=== PATIENT | female | born 1960 | race Caucasian/White ===

== ENCOUNTER 2017-01-26 20:32 | Inpatient (IN) | payer OTHER ==
[~2017-01-26] VITALS: Ht 162.6 cm; Wt 79.6 kg
[~2017-01-26 20:32] MED LIST: AZEL137S4 NAS; Albuterol Nebulizer INH; CARV12.52 PO; FLUT16SP2 NAS; FLUT1BLS INH; FURO40TA6 PO; GABA600T2 PO; HYDR-3144 PO; HYDR-3240 PO; IBUP200T48 PO; IBUP800T PO; LEVO75TA5 PO; LOVA20TA2 PO; METH750T87 PO; OMEP10CA4 PO; ONDA4TAB7 PO; RAMI10CA PO; RANI150T8 PO; SPIR25TA3 PO
[2017-01-26] MEDS ORDERED: DIPHENHYDRAMINE 50 MG/ML, 1ML IM ONE (22:30)
[2017-01-26] MEDS ORDERED: DIPHENHYDRAMINE 50 MG/ML, 1ML ONE (23:14)
[2017-01-26 23:25] LABS: ASPARTATE AMINO TRANSFERASE 24 U/L (15-37); BLOOD UREA NITROGEN 17 mg/dL (7-18)
[2017-01-26 23:37] LABS: IS PT STATUS REG ER OR PRE ER? YES
[2017-01-27] MEDS ORDERED: CEFTRIAXONE PMX 1GM/50ML 50 ML IV SCH (00:30)
[2017-01-27] MEDS ORDERED: ONDANSETRON 2MG/ML, 2ML ONE (00:53)
[2017-01-27] MEDS ORDERED: BISACODYL 10 MG SUPP PR PRN (01:00)
[2017-01-27] MEDS ORDERED: GABAPENTIN 300 MG CAPSULE PO SCH (01:00)
[2017-01-27] MEDS ORDERED: FUROSEMIDE 40 MG TABLET PO PRN (01:00)
[2017-01-27] MEDS ORDERED: LOVASTATIN 40 MG TABLET PO SCH (01:00)
[2017-01-27] MEDS ORDERED: ALBUTEROL NEBULIZER INH SCH (01:00)
[2017-01-27] MEDS ORDERED: FLUTICASONE/VILANTEROL 200-25MCG/INH INH PRN (01:00)
[2017-01-27] MEDS ORDERED: NITROGLYCERIN 0.4 MG BOTTLE (25 TABS) SL PRN (01:00)
[2017-01-27] MEDS ORDERED: ONDANSETRON 2MG/ML, 2ML IVPush ONE (01:00)
[2017-01-27] MEDS ORDERED: ACETAMINOPHEN 325 MG TABLET PO PRN (01:00)
[2017-01-27] MEDS ORDERED: hydrALAzine 20 MG/ML, 1ML IV PRN (01:00)
[2017-01-27] MEDS ORDERED: POLYETHYLENE GLYCOL 17 GM PACKET PO PRN (01:00)
[2017-01-27] MEDS ORDERED: MORPHINE SULFATE 4 MG/ML, 1ML IVPush PRN (01:00)
[2017-01-27] MEDS ORDERED: ONDANSETRON 2MG/ML, 2ML IVP PRN (01:00)
[2017-01-27] MEDS ORDERED: FLUTICASONE NASAL SPRAY 16GM NAS PRN (01:00)
[2017-01-27] MEDS ORDERED: CEFTRIAXONE PMX 1GM/50ML 50 ML ONE (01:02)
[2017-01-27 02:07] VITALS: BP 134/82
[2017-01-27 02:08] VITALS: BP 134/82
[2017-01-27] MEDS: HEPARIN 5,000 UNITS/ML, 1ML SQ SCH ×2 (03:02→11:00)
[2017-01-27 06:03] LABS: BLOOD UREA NITROGEN 16 mg/dL (7-18)
[2017-01-27 06:10] LABS: ASPARTATE AMINO TRANSFERASE 17 U/L (15-37)
[2017-01-27 06:11] LABS: IS PT STATUS REG ER OR PRE ER? NO
[2017-01-27] MEDS ORDERED: CEFD300C37 PO (07:15)
[2017-01-27 07:47] VITALS: BP 109/69
[2017-01-27] MEDS ORDERED: SPIRONOLACTONE 25 MG TABLET PO SCH (09:00)
[2017-01-27] MEDS ORDERED: FAMOTIDINE 20 MG TABLET PO SCH (09:00)
[2017-01-27] MEDS ORDERED: LEVOTHYROXINE 75 MCG TABLET PO SCH (09:00)
[2017-01-27] MEDS ORDERED: RAMIPRIL 2.5 MG CAPSULE PO SCH (09:00)
[2017-01-27] MEDS ORDERED: CARVEDILOL 6.25 MG TABLET PO SCH (09:00)
[2017-01-27] MEDS ORDERED: ASPIRIN 81 MG TABLET CHEW PO SCH (09:00)
[2017-01-27] MEDS ORDERED: SODIUM CHLORIDE FLUSH 10ML SYR IVF SCH (09:00)
[2017-01-27] MEDS ORDERED: SENNA/DOCUSATE TABLET PO SCH (09:00)
[2017-01-27] MEDS ORDERED: REGADENOSON 0.4 MG/5 ML SYRINGE ONE (09:45)
[2017-01-27 12:40] LABS: IS PT STATUS REG ER OR PRE ER? NO
== END 2017-01-27 15:35 | disposition home or self-care (01) | DRG 392 ==
LOC: ED 23:59 → EDIP 01-27 00:26 → 5SO 01-27 01:03 → DCLOUNGE 01-27 15:09
PROVIDERS: ADMIT Internal Medicine
PROC: 5A09357 Assistance with Respiratory Ventilation, Less than 24 Consecutive Hours, Continuous Positive Airway Pressure (ICD-10-PCS; principal; 2017-01-27)
DX: K21.9 Gastro-esophageal reflux disease without esophagitis (principal); N39.0 Urinary tract infection, site not specified; J44.9 Chronic obstructive pulmonary disease, unspecified; G47.33 Obstructive sleep apnea (adult) (pediatric); I50.9 Heart failure, unspecified; I11.0 Hypertensive heart disease with heart failure; I34.0 Nonrheumatic mitral (valve) insufficiency; I16.0 Hypertensive urgency; E03.9 Hypothyroidism, unspecified; E78.5 Hyperlipidemia, unspecified; Z82.49 Family history of ischemic heart disease and other diseases of the circulatory system; Z82.62 Family history of osteoporosis; Z82.5 Family history of asthma and other chronic lower respiratory diseases; Z91.013 Allergy to seafood; Z88.1 Allergy status to other antibiotic agents; Z91.041 Radiographic dye allergy status
CPT/HCPCS: 36415; 71020; 78452; 80053; 81001; 83880; 84484; 85025; 87040; 87086; 93005; 93017; 93306; 96372; 96374; J0696; J1644; J2405; J2785; A9502; C9898; J1200

== ENCOUNTER 2019-01-30 10:09 | Inpatient (IN) | payer OTHER ==
[~2019-01-30] VITALS: Ht 162.6 cm; Wt 76.2 kg
[~2019-01-30 10:09] MED LIST changes: +CEFD300C37 PO; -GABA600T2 PO; +GABA600T7 PO; -HYDR-3144 PO; +HYDR-3245 PO; +IBUP-1223 PO; -IBUP200T48 PO; +IBUP200T49 PO; -IBUP800T PO; -RAMI10CA PO; +RAMI10CA59 PO; +RANI150T23 PO; -RANI150T8 PO; -SPIR25TA3 PO; +SPIR25TA5 PO
[2019-01-30] MEDS ORDERED: ALBUTEROL/IPRATROPIUM 2.5MG/0.5MG, 3 ML ONE ×3 (11:03→14:52)
[2019-01-30] MEDS: ALBUTEROL/IPRATROPIUM 2.5MG/0.5MG, 3 ML NPPB SCH ×4 (11:05→18:56)
[2019-01-30 11:27] LABS: BASOPHILS # (AUTO) 0.03 x10^3/uL (0-0.1); BASOPHILS % (AUTO) 1 % (0-1); EOSINOPHILS # (AUTO) 0.03 x10^3/uL (0-0.4); EOSINOPHILS % (AUTO) 1 % (1-7); LYMPHOCYTES # (AUTO) 1.14 x10^3/uL (1-3.4); LYMPHOCYTES % (AUTO) 29 % (22-44); MD NO; MEAN CORPUSCULAR HEMOGLOBIN 27.5 pg (27.0-34.8); MEAN CORPUSCULAR HGB CONC 33.6 g/dL (32.4-35.8); MEAN CORPUSCULAR VOLUME 81.7 fL (80-100); MEAN PLATELET VOLUME 12.5 fL (7.4-10.4); MONOCYTES % (AUTO) 10 % (2-9); NEUTROPHILS # (AUTO) 2.41 x10^3/uL (1.8-6.8); NEUTROPHILS % (AUTO) 60 % (42-75); PLATELET COUNT 162 x10^3/uL (130-400); RED CELL DISTRIBUTION WIDTH 14.7 % (9.6-15.2)
[2019-01-30 11:43] LABS: ALBUMIN 3.6 g/dL (3.4-5.0); ANION GAP 8 mmol/L (5-15); CALCIUM 8.9 mg/dL (8.5-10.1); CHLORIDE 109 mmol/L (98-107); CREATININE 0.83 mg/dL (0.55-1.02)
[2019-01-30] MEDS ORDERED: SODIUM CHLORIDE 0.9% 1,000 ML IV ONE (11:49)
[2019-01-30] MEDS ORDERED: SODIUM CHLORIDE 0.9% 1,000ML IVBOLUS ONE (12:00)
[2019-01-30] MEDS ORDERED: VANCOMYCIN PER PHARMACY MC ONE (12:00)
[2019-01-30] MEDS ORDERED: VANCOMYCIN 1,500 MG in SODIUM CHLORIDE 0.9% 250 ML IV ONE (12:00)
[2019-01-30] MEDS ORDERED: PIPERACILLIN/TAZO/PMX 3.375GM 50 ML IVPB ONE (12:00)
[2019-01-30] MEDS ORDERED: PIPERACILLIN/TAZO/PMX 3.375GM 50 ML ONE (12:27)
[2019-01-30] MEDS ORDERED: LISI2.5T PO (12:41)
[2019-01-30] MEDS ORDERED: KETOROLAC 30 MG/1 ML IV PRN (16:30)
[2019-01-30] MEDS ORDERED: ACETAMINOPHEN 325 MG TABLET PO PRN (16:30)
[2019-01-30] MEDS ORDERED: METHOCARBAMOL 500 MG TABLET PO PRN (16:30)
[2019-01-30] MEDS ORDERED: IBUPROFEN 600 MG TABLET PO PRN (16:30)
[2019-01-30] MEDS ORDERED: POTASSIUM CHLORIDE 20 MEQ TAB.ER.PRT PO ONE (16:30)
[2019-01-30] MEDS ORDERED: ONDANSETRON ODT 4 MG PO PRN (16:30)
[2019-01-30] MEDS ORDERED: ONDANSETRON 2MG/ML, 2ML IVPush PRN (16:30)
[2019-01-30 16:52] VITALS: BP 145/84
[2019-01-30] MEDS: methylPREDNISolone SOD SUCC 125 MG/2 ML IVPush SCH ×2 (16:53→23:57)
[2019-01-30] MEDS: ENOXAPARIN 40 MG/0.4 ML SQ SCH (16:54)
[2019-01-30] MEDS: PIPERACILLIN/TAZO/PMX 3.375GM 50 ML IV SCH ×2 (18:06→23:57)
[2019-01-30 18:48] LABS: RAPID INFLUENZA A Negative (Negative); RAPID INFLUENZA B Negative (Negative)
[2019-01-30 19:38] VITALS: BP 133/75
[2019-01-30] MEDS: FAMOTIDINE 20 MG TABLET PO SCH (20:00)
[2019-01-31 01:42] VITALS: BP 124/67
[2019-01-31 05:52] LABS: CHLORIDE 111 mmol/L (98-107)
[2019-01-31] MEDS: PIPERACILLIN/TAZO/PMX 3.375GM 50 ML IV SCH ×3 (05:52→19:59)
[2019-01-31 06:14] LABS: ALANINE AMINOTRANSFERASE 31 U/L (12-78); ALKALINE PHOSPHATASE 99 U/L (45-117); ANION GAP 11 mmol/L (5-15); BILIRUBIN,TOTAL 0.4 mg/dL (0.2-1.0); CALCIUM 8.2 mg/dL (8.5-10.1); CHOLESTEROL, TOTAL 258 mg/dL (140-239); CREATININE 0.75 mg/dL (0.55-1.02); HDL CHOL % 17 % (28-40); HDL CHOLESTEROL (DIRECT) 43 mg/dL (40-60); LDL CHOLESTEROL,CALCULATED 196 mg/dL (54-169); LDL/HDL RATIO 4.6 (0.5-3.0); THYROID STIMULATING HORMONE 0.342 mIU/L (0.358-3.740); TOTAL PROTEIN 6.4 g/dL (6.4-8.2); TRIGLYCERIDES 95 mg/dL (50-200); VLDL CHOLESTEROL 19 mg/dL (0-25)
[2019-01-31 06:30] LABS: BASOPHILS # (AUTO) 0.01 x10^3/uL (0-0.1); BASOPHILS % (AUTO) 1 % (0-1); EOSINOPHILS % (AUTO) 0 % (1-7); LYMPHOCYTES # (AUTO) 1.09 x10^3/uL (1-3.4); LYMPHOCYTES % (AUTO) 42 % (22-44); MD SCAN; MEAN CORPUSCULAR HEMOGLOBIN 27.4 pg (27.0-34.8); MEAN CORPUSCULAR HGB CONC 33.2 g/dL (32.4-35.8); MEAN CORPUSCULAR VOLUME 82.4 fL (80-100); MEAN PLATELET VOLUME 12.6 fL (7.4-10.4); MONOCYTES # (AUTO) 0.14 x10^3/uL (0.2-0.8); MONOCYTES % (AUTO) 5 % (2-9); NEUTROPHILS # (AUTO) 1.36 x10^3/uL (1.8-6.8); NEUTROPHILS % (AUTO) 52 % (42-75); PLATELET COUNT 150 x10^3/uL (130-400); RED BLOOD COUNT 4.48 x10^6/uL (3.82-5.3); RED CELL DISTRIBUTION WIDTH 15.2 % (9.6-15.2)
[2019-01-31] MEDS: ALBUTEROL/IPRATROPIUM 2.5MG/0.5MG, 3 ML NPPB SCH ×4 (07:00→19:58)
[2019-01-31 07:45] VITALS: BP 137/73
[2019-01-31] MEDS: methylPREDNISolone SOD SUCC 125 MG/2 ML IVPush SCH ×2 (08:49→17:00)
[2019-01-31] MEDS: FAMOTIDINE 20 MG TABLET PO SCH ×2 (08:49→19:59)
[2019-01-31] MEDS ORDERED: ALBUTEROL SULFATE 2.5 MG/3 ML NPPB PRN (10:00)
[2019-01-31] MEDS ORDERED: FLUTICASONE/VILANTEROL 200-25MCG/INH INH PRN (10:00)
[2019-01-31] MEDS ORDERED: CARVEDILOL 6.25 MG TABLET PO SCH (10:00)
[2019-01-31] MEDS ORDERED: LEVOTHYROXINE 75 MCG TABLET PO SCH (10:00)
[2019-01-31] MEDS: SODIUM CHLORIDE 0.9% 1,000 ML IV SCH ×4 (11:27→19:59)
[2019-01-31 12:45] VITALS: BP 145/89
[2019-01-31] MEDS ORDERED: DIPHENHYDRAMINE 50 MG/ML, 1ML IV ONE (14:00)
[2019-01-31] MEDS ORDERED: methylPREDNISolone SOD SUCC 125 MG/2 ML IVPush ONE (14:00)
[2019-01-31] MEDS ORDERED: BIVALIRUDIN 250 MG ONE (14:36)
[2019-01-31] MEDS ORDERED: HEPARIN 1,000 UNITS/ML, 10ML ONE (14:36)
[2019-01-31] MEDS ORDERED: VERAPAMIL 2.5 MG/ML, 2ML ONE (14:36)
[2019-01-31] MEDS ORDERED: LIDOCAINE 2%, 20ML ONE (14:36)
[2019-01-31] MEDS ORDERED: MIDAZOLAM 1 MG/ML, 5ML ONE (14:36)
[2019-01-31] MEDS ORDERED: FENTANYL PF 100 MCG/2ML ONE (14:36)
[2019-01-31] MEDS ORDERED: TICAGRELOR 90 MG TABLET ONE (14:36)
[2019-01-31] MEDS ORDERED: DIPHENHYDRAMINE 50 MG/ML, 1ML ONE (14:51)
[2019-01-31] MEDS ORDERED: methylPREDNISolone SOD SUCC 125 MG/2 ML ONE (14:54)
[2019-01-31] MEDS: ENOXAPARIN 40 MG/0.4 ML SQ SCH (16:01)
[2019-01-31 18:53] VITALS: BP 116/49
[2019-01-31] MEDS: ATORVASTATIN 40 MG TABLET PO SCH (19:59)
[2019-01-31] MEDS ORDERED: CARVEDILOL 12.5 MG TABLET PO SCH (21:00)
[2019-01-31] MEDS ORDERED: LOVASTATIN 20 MG TABLET PO SCH (21:00)
[2019-02-01 00:25] VITALS: BP 128/72
[2019-02-01] MEDS: methylPREDNISolone SOD SUCC 125 MG/2 ML IVPush SCH (01:15)
[2019-02-01] MEDS: PIPERACILLIN/TAZO/PMX 3.375GM 50 ML IV SCH ×4 (01:15→21:25)
[2019-02-01] MEDS: LEVOTHYROXINE 50 MCG TABLET PO SCH (05:11)
[2019-02-01 05:21] LABS: ANION GAP 6 mmol/L (5-15); CALCIUM 8.1 mg/dL (8.5-10.1); CHLORIDE 112 mmol/L (98-107)
[2019-02-01 05:23] LABS: CREATININE 0.72 mg/dL (0.55-1.02)
[2019-02-01 05:24] LABS: BASOPHILS # (AUTO) 0.01 x10^3/uL (0-0.1); BASOPHILS % (AUTO) 0 % (0-1); EOSINOPHILS % (AUTO) 0 % (1-7); LYMPHOCYTES # (AUTO) 1.24 x10^3/uL (1-3.4); LYMPHOCYTES % (AUTO) 13 % (22-44); MD NO; MEAN CORPUSCULAR HEMOGLOBIN 27.4 pg (27.0-34.8); MEAN CORPUSCULAR HGB CONC 33.1 g/dL (32.4-35.8); MEAN CORPUSCULAR VOLUME 82.8 fL (80-100); MEAN PLATELET VOLUME 12.5 fL (7.4-10.4); MONOCYTES # (AUTO) 0.39 x10^3/uL (0.2-0.8); MONOCYTES % (AUTO) 4 % (2-9); NEUTROPHILS # (AUTO) 8.01 x10^3/uL (1.8-6.8); NEUTROPHILS % (AUTO) 83 % (42-75); PLATELET COUNT 158 x10^3/uL (130-400); RED CELL DISTRIBUTION WIDTH 15.3 % (9.6-15.2)
[2019-02-01] MEDS ORDERED: LEVOTHYROXINE 50 MCG TABLET PO SCH (06:00)
[2019-02-01] MEDS: ALBUTEROL/IPRATROPIUM 2.5MG/0.5MG, 3 ML NPPB SCH ×2 (07:00→20:34)
[2019-02-01 07:46] VITALS: BP 143/78
[2019-02-01] MEDS ORDERED: LISINOPRIL 5 MG TABLET PO SCH (09:00)
[2019-02-01] MEDS ORDERED: CARVEDILOL 6.25 MG TABLET PO SCH ×2 (09:30→21:00)
[2019-02-01] MEDS: LISINOPRIL 5 MG TABLET PO SCH (09:35)
[2019-02-01] MEDS: POTASSIUM CHLORIDE 20 MEQ TAB.ER.PRT PO SCH ×2 (09:35→17:04)
[2019-02-01] MEDS: CARVEDILOL 6.25 MG TABLET PO SCH ×2 (09:36→21:00)
[2019-02-01] MEDS: SPIRONOLACTONE 25 MG TABLET PO SCH (09:36)
[2019-02-01] MEDS: FAMOTIDINE 20 MG TABLET PO SCH ×2 (09:36→21:25)
[2019-02-01] MEDS: TEMPLATE NON-FORMULARY MED. (Ranitidine Hcl** (Zantac**) 150 MG) PO SCH (09:37)
[2019-02-01 12:49] VITALS: BP 124/77
[2019-02-01] MEDS: ENOXAPARIN 40 MG/0.4 ML SQ SCH (17:05)
[2019-02-01 19:14] VITALS: BP 150/80
[2019-02-01 21:00] VITALS: BP 166/50
[2019-02-01] MEDS: ATORVASTATIN 40 MG TABLET PO SCH (21:25)
[2019-02-02 01:29] VITALS: BP 158/86
[2019-02-02] MEDS: PIPERACILLIN/TAZO/PMX 3.375GM 50 ML IV SCH ×4 (03:39→21:26)
[2019-02-02 05:40] LABS: CHLORIDE 111 mmol/L (98-107)
[2019-02-02] MEDS ORDERED: FILTER 0.22 MICRON IV ONE (06:00)
[2019-02-02] MEDS ORDERED: AMIODARONE 150 MG in DEXTROSE 5% 100 ML IV ONE (06:00)
[2019-02-02] MEDS: LEVOTHYROXINE 50 MCG TABLET PO SCH (06:08)
[2019-02-02 06:15] LABS: ANION GAP 10 mmol/L (5-15); CALCIUM 8.4 mg/dL (8.5-10.1); CREATININE 0.83 mg/dL (0.55-1.02)
[2019-02-02 07:26] VITALS: BP 136/82
[2019-02-02] MEDS: TEMPLATE NON-FORMULARY MED. (Ranitidine Hcl** (Zantac**) 150 MG) PO SCH (08:40)
[2019-02-02] MEDS: CARVEDILOL 6.25 MG TABLET PO SCH ×2 (08:45→21:10)
[2019-02-02] MEDS: SPIRONOLACTONE 25 MG TABLET PO SCH (08:45)
[2019-02-02] MEDS: LISINOPRIL 5 MG TABLET PO SCH (08:45)
[2019-02-02] MEDS: FAMOTIDINE 20 MG TABLET PO SCH ×2 (08:45→21:11)
[2019-02-02] MEDS: ALBUTEROL/IPRATROPIUM 2.5MG/0.5MG, 3 ML NPPB SCH ×2 (11:10→20:48)
[2019-02-02 13:00] VITALS: BP 126/79
[2019-02-02] MEDS ORDERED: POTASSIUM CHLORIDE 20 MEQ TAB.ER.PRT PO ONE (14:00)
[2019-02-02] MEDS ORDERED: AMIODARONE 50 MG/ML, 3ML IVPush ONE (14:00)
[2019-02-02] MEDS ORDERED: POTASSIUM PHOSPHATE 22 MEQ in SODIUM CHLORIDE 0.9% 500 ML IV ONE (15:30)
[2019-02-02] MEDS ORDERED: DIGOXIN 0.25 MG/ML, 2ML IVPush ONE (17:00)
[2019-02-02 20:14] VITALS: BP 148/77
[2019-02-02] MEDS: APIXABAN 5 MG TABLET PO SCH (21:10)
[2019-02-02] MEDS: ATORVASTATIN 40 MG TABLET PO SCH (21:10)
[2019-02-03 00:46] VITALS: BP 134/76
[2019-02-03] MEDS: PIPERACILLIN/TAZO/PMX 3.375GM 50 ML IV SCH ×2 (04:05→09:04)
[2019-02-03 05:20] LABS: CHLORIDE 110 mmol/L (98-107)
[2019-02-03 05:27] LABS: ANION GAP 6 mmol/L (5-15); CREATININE 0.86 mg/dL (0.55-1.02)
[2019-02-03] MEDS: LEVOTHYROXINE 50 MCG TABLET PO SCH (06:16)
[2019-02-03 08:08] VITALS: BP 127/80
[2019-02-03] MEDS: FAMOTIDINE 20 MG TABLET PO SCH (08:38)
[2019-02-03] MEDS: CARVEDILOL 6.25 MG TABLET PO SCH (08:38)
[2019-02-03] MEDS: APIXABAN 5 MG TABLET PO SCH (08:38)
[2019-02-03] MEDS: SPIRONOLACTONE 25 MG TABLET PO SCH (08:38)
[2019-02-03] MEDS: LISINOPRIL 5 MG TABLET PO SCH (08:38)
[2019-02-03] MEDS: TEMPLATE NON-FORMULARY MED. (Ranitidine Hcl** (Zantac**) 150 MG) PO SCH (08:40)
[2019-02-03] MEDS: ALBUTEROL/IPRATROPIUM 2.5MG/0.5MG, 3 ML NPPB SCH (09:00)
[2019-02-03] MEDS ORDERED: ATOR40TA78 PO (11:02)
[2019-02-03] MEDS ORDERED: LEVO50TA PO (11:02)
[2019-02-03] MEDS ORDERED: LISI5TAB7 PO (11:02)
[2019-02-03] MEDS ORDERED: APIX5TAB PO (11:02)
[2019-02-03] MEDS ORDERED: CARV6.2512 PO (11:02)
[2019-02-03] MEDS ORDERED: IPRA3AMP30 NPPB (11:02)
[2019-02-03] MEDS ORDERED: PRED20TA PO (11:02)
[2019-02-03] MEDS ORDERED: DOXY100T PO (11:02)
[2019-02-03] MEDS ORDERED: FAMO20TA7 PO (11:02)
[2019-02-03] MEDS ORDERED: CEFD300C37 PO (11:02)
== END 2019-02-03 14:15 | disposition home or self-care (01) | DRG 286 ==
LOC: ED 12:08 → EDIP 12:57 → 4WST 15:40 → 5SO 01-31 15:35 → DCLOUNGE 02-03 14:01
PROVIDERS: ADMIT Internal Medicine; ATTEND Internal Medicine
PROC: 4A023N7 Measurement of Cardiac Sampling and Pressure, Left Heart, Percutaneous Approach (ICD-10-PCS; principal; 2019-01-31)
PROC: B2111ZZ Fluoroscopy of Multiple Coronary Arteries using Low Osmolar Contrast (ICD-10-PCS; 2019-01-31)
PROC: B2151ZZ Fluoroscopy of Left Heart using Low Osmolar Contrast (ICD-10-PCS; 2019-01-31)
DX: I47.2 Ventricular tachycardia (principal); J15.9 Unspecified bacterial pneumonia; J96.01 Acute respiratory failure with hypoxia; D68.69 Other thrombophilia; I42.9 Cardiomyopathy, unspecified; I50.22 Chronic systolic (congestive) heart failure; J44.0 Chronic obstructive pulmonary disease with (acute) lower respiratory infection; J44.1 Chronic obstructive pulmonary disease with (acute) exacerbation; J45.901 Unspecified asthma with (acute) exacerbation; E03.9 Hypothyroidism, unspecified; E78.5 Hyperlipidemia, unspecified; E83.39 Other disorders of phosphorus metabolism; E87.6 Hypokalemia; G47.33 Obstructive sleep apnea (adult) (pediatric); I11.0 Hypertensive heart disease with heart failure; I25.10 Atherosclerotic heart disease of native coronary artery without angina pectoris; I48.0 Paroxysmal atrial fibrillation; K21.9 Gastro-esophageal reflux disease without esophagitis; Z79.01 Long term (current) use of anticoagulants; Z87.891 Personal history of nicotine dependence; Z91.041 Radiographic dye allergy status; Z99.81 Dependence on supplemental oxygen; Z88.8 Allergy status to other drugs, medicaments and biological substances; Z88.3 Allergy status to other anti-infective agents; Z91.013 Allergy to seafood; I25.2 Old myocardial infarction
CPT/HCPCS: 36415; 84145; 87400; 93458; 99285; J3490; J7620; 71046; 71250; 80048; 80053; 80061; 82040; 83605; 83735; 84100; 84439; 84443; 85025; 87040; 93005; 93306; 94640; 96365; 99156; C1769; C1894; G0378; J0583; J1644; J1650; J2250; J2543; J3010; J3370; J0282; J1160; J1200; J2930; J7030; J7040; J7050; J7512; Q9967

== ENCOUNTER 2019-03-20 18:30 | Inpatient (IN) | payer OTHER ==
[~2019-03-20] VITALS: Ht 162.6 cm; Wt 71.4 kg
[~2019-03-20 18:30] MED LIST changes: +APIX5TAB PO; +ATOR40TA78 PO; +CARV6.2512 PO; +DOXY100T PO; +FAMO20TA7 PO; +IPRA3AMP30 NPPB; +LEVO50TA PO; +LISI2.5T PO; +LISI5TAB7 PO; +PRED20TA PO
[2019-03-20] MEDS ORDERED: SODIUM CHLORIDE FLUSH 10ML SYR IVF ONE (19:00)
--- NOTE | 2019-03-20 19:08 | NUR ---
PT. TO ED AFTER GETTING A CALL FROM [employer] THAT HER HR WENT UP TO 180'S. PT. REPORTS SHE DID FEEL "LIKE I WAS GOING TO PASS OUT, BUT THE FEELING PASSED". PT. DENIES ANY CP, SOB. REPORTS DIZZINESS OFF/ON FOR A FEW WEEKS. HAS BEEN ON [employer] FOR ABOUT 3 WEEKS NOW. EKG WAS DONE IN TRIAGE AND PRESENTED TO ERP. DR. PIEDRA AT BS NOW FOR EVAL AND TO DISCUSS POC WITH PT. AND AT BS. CONTINUOUS PULSE OX, B/P, AND HEART MONITORS APPLIED. SOME PVC'S NOTED ON MONITOR. PT. DENIES ANY DISCOMFORT AT THIS TIME. ALL SAFETY MEASURES OBSERVED.
[2019-03-20 19:15] LABS: ALANINE AMINOTRANSFERASE 24 U/L (12-78); ALBUMIN 3.7 g/dL (3.4-5.0); ANION GAP 5 mmol/L (5-15); CALCIUM 9.1 mg/dL (8.5-10.1); CHLORIDE 114 mmol/L (98-107); CREATININE 0.89 mg/dL (0.55-1.02)
[2019-03-20 19:20] LABS: ALKALINE PHOSPHATASE 138 U/L (45-117); BILIRUBIN,TOTAL 0.4 mg/dL (0.2-1.0); FREE T4 (FREE THYROXINE) 1.21 ng/dL (0.76-1.46); TOTAL PROTEIN 7.3 g/dL (6.4-8.2)
[2019-03-20 19:38] LABS: BASOPHILS # (AUTO) 0.06 x10^3/uL (0-0.1); BASOPHILS % (AUTO) 1 % (0-1); EOSINOPHILS # (AUTO) 0.17 x10^3/uL (0-0.4); EOSINOPHILS % (AUTO) 2 % (1-7); LYMPHOCYTES # (AUTO) 1.78 x10^3/uL (1-3.4); LYMPHOCYTES % (AUTO) 24 % (22-44); MD MORPH REVIEW ONLY; MEAN CORPUSCULAR HEMOGLOBIN 26.8 pg (27.0-34.8); MEAN CORPUSCULAR HGB CONC 31.8 g/dL (32.4-35.8); MEAN CORPUSCULAR VOLUME 84.4 fL (80-100); MEAN PLATELET VOLUME 11.7 fL (7.4-10.4); MONOCYTES # (AUTO) 0.67 x10^3/uL (0.2-0.8); MONOCYTES % (AUTO) 9 % (2-9); NEUTROPHILS # (AUTO) 4.68 x10^3/uL (1.8-6.8); NEUTROPHILS % (AUTO) 64 % (42-75); PLATELET COUNT 173 x10^3/uL (130-400); RED BLOOD COUNT 4.43 x10^6/uL (3.82-5.3); RED CELL DISTRIBUTION WIDTH 16.4 % (9.6-15.2)
[2019-03-20 19:40] LABS: <PLATELET ESTIMATE> ADEQUATE; ANISOCYTOSIS 1+; GIANT PLATELETS 1+
--- NOTE | 2019-03-20 20:01 | NUR ---
PT. RESTING ON GURNEY. NO DISTRESS NOTED. PT. WITHOUT COMPLAINT. HR 63, NSR WITH SOME ECTOPY NOTED. PT. DENIES NEEDS.
--- NOTE | 2019-03-20 20:02 | NUR ---
AWAITING PROVIDER RECHECK. PT. REFUSING IV AT THIS TIME.
[2019-03-20] MEDS ORDERED: SODIUM CHLORIDE FLUSH 10ML SYR IVF PRN (21:00)
[2019-03-20] MEDS ORDERED: hydrALAzine 20 MG/ML, 1ML IVPush PRN (21:30)
--- NOTE | 2019-03-20 21:33 | NUR ---
PT. WAS C/O PAIN AT IV SITE AND DEMANDING IT BE TAKEN OUT. DISCUSSED NEED FOR IV FOR ADMISISON WITH PT. NEW IV PLACED AND FIRST IV REMOVED.
--- NOTE | 2019-03-20 21:54 | NUR ---
REPORT TO LUIS FERRIS. FLOOR READY FOR PT. TRANSPORT.
[2019-03-20 23:05] VITALS: BP 152/96
[2019-03-21 00:32] LABS: TROPONIN I 0.052 ng/mL (0.000-0.045)
[2019-03-21 01:06] VITALS: BP 143/77
[2019-03-21 06:38] LABS: MEAN CORPUSCULAR HEMOGLOBIN 26.7 pg (27.0-34.8); MEAN CORPUSCULAR HGB CONC 31.7 g/dL (32.4-35.8); MEAN CORPUSCULAR VOLUME 84.2 fL (80-100); RED BLOOD COUNT 4.02 x10^6/uL (3.82-5.3); RED CELL DISTRIBUTION WIDTH 16.5 % (9.6-15.2)
[2019-03-21 06:47] LABS: ALBUMIN 3.1 g/dL (3.4-5.0); ANION GAP 8 mmol/L (5-15); CALCIUM 8.6 mg/dL (8.5-10.1); CHLORIDE 112 mmol/L (98-107)
[2019-03-21 06:58] LABS: ALANINE AMINOTRANSFERASE 21 U/L (12-78); ALKALINE PHOSPHATASE 114 U/L (45-117); BILIRUBIN,TOTAL 0.4 mg/dL (0.2-1.0); CREATININE 0.81 mg/dL (0.55-1.02); TOTAL PROTEIN 6.1 g/dL (6.4-8.2)
[2019-03-21 07:25] VITALS: BP 144/89
[2019-03-21 07:35] LABS: BASOPHILS # (AUTO) 0.06 x10^3/uL (0-0.1); BASOPHILS % (AUTO) 1 % (0-1); EOSINOPHILS # (AUTO) 0.16 x10^3/uL (0-0.4); EOSINOPHILS % (AUTO) 3 % (1-7); LYMPHOCYTES # (AUTO) 2.15 x10^3/uL (1-3.4); LYMPHOCYTES % (AUTO) 37 % (22-44); MD SCAN; MEAN PLATELET VOLUME 11.1 fL (7.4-10.4); MONOCYTES # (AUTO) 0.54 x10^3/uL (0.2-0.8); MONOCYTES % (AUTO) 9 % (2-9); NEUTROPHILS # (AUTO) 2.92 x10^3/uL (1.8-6.8); NEUTROPHILS % (AUTO) 50 % (42-75); PLATELET COUNT 147 x10^3/uL (130-400)
[2019-03-21] MEDS ORDERED: CARVEDILOL 6.25 MG TABLET PO SCH (09:00)
[2019-03-21] MEDS: CEFDINIR 300 MG CAPSULE PO SCH ×2 (09:00→09:02)
[2019-03-21] MEDS: DOXYCYCLINE 100MG TABLET PO SCH ×2 (09:00→09:02)
[2019-03-21] MEDS: FAMOTIDINE 20 MG TABLET PO SCH ×2 (09:02→20:26)
[2019-03-21] MEDS: APIXABAN 5 MG TABLET PO SCH ×2 (09:02→20:30)
[2019-03-21 10:59] LABS: ANION GAP 4 mmol/L (5-15); CALCIUM 8.9 mg/dL (8.5-10.1); CHLORIDE 113 mmol/L (98-107); CREATININE 0.82 mg/dL (0.55-1.02)
[2019-03-21] MEDS: AMIODARONE 200 MG TABLET PO SCH ×2 (11:01→20:27)
[2019-03-21] MEDS: LISINOPRIL 5 MG TABLET PO SCH (11:01)
[2019-03-21] MEDS ORDERED: ACETAMINOPHEN 325 MG TABLET PO PRN (12:00)
[2019-03-21] MEDS ORDERED: ALBUTEROL/IPRATROPIUM 2.5MG/0.5MG, 3 ML NPPB PRN (12:00)
[2019-03-21] MEDS ORDERED: FLUTICASONE/VILANTEROL 200-25MCG/INH INH PRN (12:00)
[2019-03-21 14:30] VITALS: BP 118/73
[2019-03-21 19:29] VITALS: BP 144/88
[2019-03-21] MEDS: ATORVASTATIN 40 MG TABLET PO SCH (20:26)
[2019-03-21] MEDS: CARVEDILOL 6.25 MG TABLET PO SCH (20:29)
[2019-03-22 01:58] VITALS: BP 138/85
[2019-03-22] MEDS: LEVOTHYROXINE 75 MCG TABLET PO SCH (06:21)
[2019-03-22 07:38] VITALS: BP 142/94
[2019-03-22] MEDS: FAMOTIDINE 20 MG TABLET PO SCH ×2 (09:08→21:01)
[2019-03-22] MEDS: AMIODARONE 200 MG TABLET PO SCH ×2 (09:08→21:01)
[2019-03-22] MEDS: LISINOPRIL 5 MG TABLET PO SCH (09:08)
[2019-03-22] MEDS: APIXABAN 5 MG TABLET PO SCH ×2 (09:08→21:01)
[2019-03-22] MEDS: CARVEDILOL 6.25 MG TABLET PO SCH ×2 (09:09→21:01)
[2019-03-22 14:51] VITALS: BP 105/69
[2019-03-22 20:10] VITALS: BP 147/88
[2019-03-22] MEDS: ATORVASTATIN 40 MG TABLET PO SCH (21:01)
[2019-03-23 01:12] VITALS: BP 123/73
[2019-03-23] MEDS: LEVOTHYROXINE 75 MCG TABLET PO SCH (06:20)
[2019-03-23 07:53] VITALS: BP 134/84
[2019-03-23] MEDS: AMIODARONE 200 MG TABLET PO SCH (08:49)
[2019-03-23] MEDS: LISINOPRIL 5 MG TABLET PO SCH (08:50)
[2019-03-23] MEDS: FAMOTIDINE 20 MG TABLET PO SCH (08:50)
[2019-03-23] MEDS: CARVEDILOL 6.25 MG TABLET PO SCH (08:50)
[2019-03-23] MEDS: APIXABAN 5 MG TABLET PO SCH (08:50)
[2019-03-23] MEDS ORDERED: LEVO75TA PO (10:53)
[2019-03-23] MEDS ORDERED: AMIO200T42 PO (10:53)
[2019-03-23] MEDS ORDERED: CARV6.2512 PO (10:53)
== END 2019-03-23 13:40 | disposition home or self-care (01) | DRG 309 ==
LOC: ED 19:26 → EDIP 20:55 → 5SO 22:28 → DCLOUNGE 03-23 13:25
PROVIDERS: ADMIT Family Medicine; ATTEND Family Medicine
DX: I47.2 Ventricular tachycardia (principal); I42.9 Cardiomyopathy, unspecified; I50.42 Chronic combined systolic (congestive) and diastolic (congestive) heart failure; E03.9 Hypothyroidism, unspecified; E78.5 Hyperlipidemia, unspecified; I11.0 Hypertensive heart disease with heart failure; I25.10 Atherosclerotic heart disease of native coronary artery without angina pectoris; I48.0 Paroxysmal atrial fibrillation; I49.3 Ventricular premature depolarization; M48.00 Spinal stenosis, site unspecified; J44.9 Chronic obstructive pulmonary disease, unspecified; Z79.01 Long term (current) use of anticoagulants; Z82.49 Family history of ischemic heart disease and other diseases of the circulatory system; Z88.8 Allergy status to other drugs, medicaments and biological substances; Z91.013 Allergy to seafood; Z91.041 Radiographic dye allergy status; Z87.891 Personal history of nicotine dependence; Z88.1 Allergy status to other antibiotic agents; Z99.81 Dependence on supplemental oxygen
CPT/HCPCS: 36415; 71045; 80048; 80053; 83735; 83880; 84439; 84443; 84484; 85025; 93005; 99285; G0378

== ENCOUNTER 2019-04-19 10:36 | Day surgery (SDC) | payer OTHER | END 2019-04-19 13:05 | disposition home or self-care (01) | LOC: CACL 10:36 | PROVIDERS: ATTEND Internal Medicine Cardiovascular Disease | DX: R00.2 Palpitations (principal); R42 Dizziness and giddiness; I47.2 Ventricular tachycardia; J44.9 Chronic obstructive pulmonary disease, unspecified; I50.9 Heart failure, unspecified; E78.5 Hyperlipidemia, unspecified; I48.0 Paroxysmal atrial fibrillation; G47.33 Obstructive sleep apnea (adult) (pediatric); Z79.01 Long term (current) use of anticoagulants; Z79.890 Hormone replacement therapy; Z79.899 Other long term (current) drug therapy; Z91.041 Radiographic dye allergy status; Z91.013 Allergy to seafood | CPT/HCPCS: 33285; C1764 ==

== ENCOUNTER → 2019-07-25 | Outpatient (CLI) | payer OTHER ==
[~2019-07-25] MED LIST changes: +AMIO200T42 PO; +LEVO75TA PO; -OMEP10CA4 PO; +OMEP10CA5 PO; +RANI-467 PO; -RANI150T23 PO
== END | disposition home or self-care (01) ==
LOC: CFH 10:30
PROVIDERS: ATTEND Nurse Practitioner
DX: R30.0 Dysuria (principal); Z82.49 Family history of ischemic heart disease and other diseases of the circulatory system; Z84.89 Family history of other specified conditions
CPT/HCPCS: 87086

== ENCOUNTER 2019-08-25 00:07 | Emergency (ER) | payer OTHER ==
[~2019-08-25] VITALS: Ht 162.6 cm; Wt 79.0 kg
[~2019-08-25 00:07] MED LIST changes: +LEVO88TA4 PO
[2019-08-25] MEDS ORDERED: TRANEXAMIC ACID 100 MG/ML, 10ML TP STA (00:12)
--- NOTE | 2019-08-25 00:20 | NUR ---
PT BIB EMS WITH BLEEDING TO MOUTH THAT IS NOW CONTROLLED. PT SEEN FOR SAME 2 WEEKS AGO. ASSESSMENT DONE. PT ON NIBP AND CONT. PULSE OX. PROVIDER AT BEDSIDE.
--- NOTE | 2019-08-25 00:55 | NUR ---
PT RESTING QUIETLY, NAD. VS UPDATED.
[2019-08-25] MEDS ORDERED: TRANEXAMIC ACID 100 MG/ML, 10ML ONE (00:57)
--- NOTE | 2019-08-25 01:29 | NUR ---
PT DC'D HOME WITH UNDERSTANDING OF INSTRUCTIONS. PT WAITING FOR FOR RIDE.
[2019-08-25 01:30] VITALS: BP 143/70
== END 2019-08-25 01:32 | disposition home or self-care (01) ==
LOC: ED 01:25
DX: K08.89 Other specified disorders of teeth and supporting structures (principal); K06.8 Other specified disorders of gingiva and edentulous alveolar ridge; E78.5 Hyperlipidemia, unspecified; I50.9 Heart failure, unspecified
CPT/HCPCS: 99283

== ENCOUNTER 2019-08-25 11:33 | Emergency (ER) | payer OTHER ==
[~2019-08-25] VITALS: Ht 162.6 cm; Wt 79.6 kg
[2019-08-25 11:38] VITALS: BP 137/74
[2019-08-25] MEDS ORDERED: TRANEXAMIC ACID 100 MG/ML, 10ML TP ONE (12:34)
[2019-08-25] MEDS ORDERED: TRANEXAMIC ACID 100 MG/ML, 10ML ONE (12:42)
== END 2019-08-25 14:42 | disposition home or self-care (01) ==
LOC: ED 13:40
DX: K06.8 Other specified disorders of gingiva and edentulous alveolar ridge (principal); J44.9 Chronic obstructive pulmonary disease, unspecified; I11.0 Hypertensive heart disease with heart failure; I50.9 Heart failure, unspecified
CPT/HCPCS: 99281

== ENCOUNTER 2019-08-25 16:35 | Emergency (ER) | payer OTHER ==
[~2019-08-25] VITALS: Ht 162.6 cm; Wt 80.9 kg
[2019-08-25] MEDS ORDERED: SODIUM CHLORIDE FLUSH 10ML SYR IVF ONE (17:00)
[2019-08-25 17:24] VITALS: BP 128/70
--- NOTE | 2019-08-25 17:24 | NUR ---
PT RESTING IN [facility], NO NEEDS AT THIS TIME. AWAITING RECHECK BY .
[2019-08-25 17:36] LABS: BASOPHILS # (AUTO) 0.04 x10^3/uL (0-0.1); BASOPHILS % (AUTO) 1 % (0-1); EOSINOPHILS % (AUTO) 2 % (1-7); LYMPHOCYTES # (AUTO) 1.35 x10^3/uL (1-3.4); LYMPHOCYTES % (AUTO) 25 % (22-44); MD NO; MEAN CORPUSCULAR HEMOGLOBIN 29.3 pg (27.0-34.8); MEAN CORPUSCULAR HGB CONC 32.9 g/dL (32.4-35.8); MEAN CORPUSCULAR VOLUME 89.2 fL (80-100); MONOCYTES # (AUTO) 0.42 x10^3/uL (0.2-0.8); MONOCYTES % (AUTO) 8 % (2-9); NEUTROPHILS # (AUTO) 3.62 x10^3/uL (1.8-6.8); NEUTROPHILS % (AUTO) 66 % (42-75); PLATELET COUNT 181 x10^3/uL (130-400); RED BLOOD COUNT 4.36 x10^6/uL (3.82-5.3); RED CELL DISTRIBUTION WIDTH 15.9 % (9.6-15.2)
[2019-08-25 17:46] LABS: INTERNATIONAL NORMALIZED RATIO 1.02 (0.93-1.1); PROTHROMBIN TIME 10.7 Seconds (9.6-11.5)
[2019-08-25 17:48] LABS: ALANINE AMINOTRANSFERASE 44 U/L (12-78); ALBUMIN 3.9 g/dL (3.4-5.0); ANION GAP 5 mmol/L (5-15); CALCIUM 8.7 mg/dL (8.5-10.1); CHLORIDE 111 mmol/L (98-107)
[2019-08-25 17:53] LABS: ALKALINE PHOSPHATASE 95 U/L (45-117); BILIRUBIN,TOTAL 0.6 mg/dL (0.2-1.0); FREE T4 (FREE THYROXINE) 1.64 ng/dL (0.76-1.46); TOTAL PROTEIN 7.1 g/dL (6.4-8.2)
== END 2019-08-25 19:23 | disposition home or self-care (01) ==
LOC: ED 16:56
DX: R55 Syncope and collapse (principal); R42 Dizziness and giddiness; I13.0 Hypertensive heart and chronic kidney disease with heart failure and stage 1 through stage 4 chronic kidney disease, or unspecified chronic kidney disease; N18.9 Chronic kidney disease, unspecified; I50.9 Heart failure, unspecified; J44.9 Chronic obstructive pulmonary disease, unspecified; E78.5 Hyperlipidemia, unspecified
CPT/HCPCS: 36415; 71045; 80053; 83735; 84439; 84443; 84484; 85025; 85610; 85730; 93005; 99284

== ENCOUNTER 2019-11-03 12:05 | Emergency (ER) | payer OTHER ==
[~2019-11-03] VITALS: Ht 162.6 cm; Wt 78.4 kg
[2019-11-03 13:15] LABS: BASOPHILS % (AUTO) 0 % (0-1); EOSINOPHILS % (AUTO) 0 % (1-7); LYMPHOCYTES % (AUTO) 12 % (22-44); MD NO; MEAN CORPUSCULAR HEMOGLOBIN 29.4 pg (27.0-34.8); MEAN CORPUSCULAR HGB CONC 33.8 g/dL (32.4-35.8); MEAN CORPUSCULAR VOLUME 86.8 fL (80-100); MEAN PLATELET VOLUME 12.4 fL (7.4-10.4); MONOCYTES # (AUTO) 0.52 x10^3/uL (0.2-0.8); MONOCYTES % (AUTO) 9 % (2-9); NEUTROPHILS # (AUTO) 4.48 x10^3/uL (1.8-6.8); NEUTROPHILS % (AUTO) 79 % (42-75); PLATELET COUNT 172 x10^3/uL (130-400); RED BLOOD COUNT 4.62 x10^6/uL (3.82-5.3); RED CELL DISTRIBUTION WIDTH 13.6 % (9.6-15.2)
[2019-11-03 13:24] LABS: ANION GAP 12 mmol/L (5-15); CALCIUM 9.2 mg/dL (8.5-10.1); CHLORIDE 100 mmol/L (98-107); CREATININE 1.39 mg/dL (0.55-1.02)
--- NOTE | 2019-11-03 13:58 | NUR ---
TO DE[facility]INI FROM LOBBY
--- NOTE | 2019-11-03 14:14 | NUR ---
PT C/O KIRKLAND, CHILLS AND FEVER OFF AND ON, COUGH WITH CP FOR 4 DAYS. MD AT BEDSIDE EXAMINING PT.
[2019-11-03] MEDS ORDERED: ALBUTEROL/IPRATROPIUM 2.5MG/0.5MG, 3 ML ONE (14:27)
[2019-11-03 14:42] VITALS: BP 122/68
--- NOTE | 2019-11-03 14:42 | NUR ---
RECEIVED BREATHING TX AND GIVEN PREDNISONE NOTED ON NOV. RESTING WITH EYES CLOSED
== END 2019-11-03 16:28 | disposition home or self-care (01) ==
LOC: ED 14:21
DX: J44.1 Chronic obstructive pulmonary disease with (acute) exacerbation (principal); I11.0 Hypertensive heart disease with heart failure; I50.9 Heart failure, unspecified; E78.5 Hyperlipidemia, unspecified
CPT/HCPCS: 36415; 71046; 80048; 82040; 85025; 94640; 99284; J7512

== ENCOUNTER → 2019-11-09 | Outpatient (CLI) | payer OTHER | END | disposition home or self-care (01) | LOC: CFH 08:40 | PROVIDERS: ATTEND Internal Medicine Cardiovascular Disease | DX: I34.8 Other nonrheumatic mitral valve disorders (principal); I11.9 Hypertensive heart disease without heart failure; I47.2 Ventricular tachycardia; E78.5 Hyperlipidemia, unspecified | CPT/HCPCS: 93306 ==

== ENCOUNTER 2020-04-03 15:06 | Emergency (ER) | payer BC, OTHER ==
[~2020-04-03] VITALS: Ht 162.6 cm; Wt 80.5 kg
[2020-04-03 15:09] VITALS: BP 165/79
--- NOTE | 2020-04-03 17:00 | NUR ---
MONUMENT [employer]VER: PT TO ROOM FROM [facility]
--- NOTE | 2020-04-03 17:43 | NUR ---
PT TO ROOM 16 W/ C/O R HAND PAIN AFTER PT STATES SHE CARRIED TO O MANY GROCERY BAGS ON ARM. PT RESTING ON GURNEY. NADN. CMS INTACT. NO DEFORMITIES NOTED. CAP REFILL <2 SEC.
== END 2020-04-03 18:23 | disposition home or self-care (01) ==
LOC: ED 17:40
DX: M77.9 Enthesopathy, unspecified (principal); M25.531 Pain in right wrist; J44.9 Chronic obstructive pulmonary disease, unspecified; I11.0 Hypertensive heart disease with heart failure; I50.9 Heart failure, unspecified; E78.5 Hyperlipidemia, unspecified
CPT/HCPCS: 29125; 99284

== ENCOUNTER 2021-04-23 03:19 | Inpatient (IN) | payer BC ==
[~2021-04-23] VITALS: Ht 162.6 cm; Wt 81.0 kg
[2021-04-23] VITALS (8 sets, daily range): BP systolic 101–129; BP diastolic 68–82
[~2021-04-23 03:19] MED LIST changes: +HYDR-2214 PO; -HYDR-3240 PO; -HYDR-3245 PO; +HYDR1TAB53 PO
--- NOTE | 2021-04-23 03:40 | NUR ---
pt back to er room at this time. pt came into ed tonight due to sob since wednesday, states she originally thoguht this was due to the smoke but it has gotten worse. pt reports shortness of breath with any activity. pt respiratory rate increased and breathing is shallow and slightly labored with activity of changing into gown to get to room. pt nad, placed on spo2/bp/ecg monitoring. melani erp at bs for eval and poc. at bs. pt refusing pain meds at this time. states "its not bad enough but ill let you know if it gets worse". Patient is resting comfortably in bed. Bed in lowest, rails engaged, call light on lap. WCTM.
[2021-04-23 03:51] LABS: BASOPHILS % (AUTO) 1 % (0-1); EOSINOPHILS % (AUTO) 1 % (1-7); LYMPHOCYTES % (AUTO) 15 % (22-44); MEAN CORPUSCULAR HEMOGLOBIN 28.5 pg (27.0-34.8); MEAN PLATELET VOLUME 11.4 fL (7.4-10.4); MONOCYTES % (AUTO) 8 % (2-9); NEUTROPHILS % (AUTO) 76 % (42-75); PLATELET COUNT 168 x10^3/uL (130-400); RED BLOOD COUNT 4.14 x10^6/uL (3.82-5.3)
[2021-04-23] MEDS ORDERED: SODIUM CHLORIDE FLUSH 10ML SYR IVF ONE (04:00)
[2021-04-23] MEDS ORDERED: ONDANSETRON 2MG/ML, 2ML IVPush ONE (04:00)
[2021-04-23] MEDS ORDERED: MORPHINE SULFATE 4 MG/ML, 1ML IVPush PRN (04:00)
[2021-04-23 04:04] LABS: ALANINE AMINOTRANSFERASE 35 U/L (12-78); ALBUMIN 3.6 g/dL (3.4-5.0); ANION GAP 6 mmol/L (5-15); CHLORIDE 111 mmol/L (98-107); CREATININE 0.95 mg/dL (0.55-1.02)
[2021-04-23 04:08] LABS: ALKALINE PHOSPHATASE 110 U/L (45-117); BILIRUBIN,TOTAL 0.4 mg/dL (0.2-1.0); TOTAL PROTEIN 7.1 g/dL (6.4-8.2); TROPONIN I 0.041 ng/mL (0.000-0.045)
[2021-04-23] MEDS ORDERED: FUROSEMIDE 40 MG/4 ML ONE (04:44)
[2021-04-23] MEDS ORDERED: CARV6.252 PO (04:59)
[2021-04-23] MEDS ORDERED: CARV3.122 PO (04:59)
[2021-04-23] MEDS ORDERED: REPATHA SC (04:59)
[2021-04-23] MEDS ORDERED: APIX5TAB PO (04:59)
[2021-04-23] MEDS ORDERED: EZET10TA70 PO (04:59)
[2021-04-23] MEDS ORDERED: LATA2.5D4 EACHEYE (04:59)
[2021-04-23] MEDS ORDERED: FUROSEMIDE 40 MG/4 ML IV ONE (05:00)
[2021-04-23] MEDS ORDERED: ALBU8.5H8 INH (05:00)
[2021-04-23] MEDS ORDERED: ACETAMINOPHEN 650 MG/20.3 ML UDC PO PRN (05:30)
[2021-04-23] MEDS ORDERED: ENOXAPARIN 40 MG/0.4 ML SQ SCH (05:30)
[2021-04-23] MEDS ORDERED: DOCUSATE 100 MG CAPSULE PO PRN (05:30)
[2021-04-23] MEDS ORDERED: ONDANSETRON 2MG/ML, 2ML IV PRN (05:30)
--- NOTE | 2021-04-23 05:57 | NUR ---
rn called to request hospital bed, breakfast tray ordered. pt nad, resting on gurney, bed in lowest, rails engaged, call light on lap, [facility].
[2021-04-23] MEDS ORDERED: ENOXAPARIN 40 MG/0.4 ML ONE (05:58)
[2021-04-23] MEDS ORDERED: ALBUTEROL SULFATE 2.5 MG/3 ML NPPB PRN ×2 (06:00→12:30)
[2021-04-23] MEDS ORDERED: BUDESONIDE 0.5 MG/2 ML INHA INH PRN (06:00)
--- NOTE | 2021-04-23 06:34 | NUR ---
PT AMBULATED TO RESTROOM WITH A SMOOTH AND STEADY GAIT. PT NAD, BACK TO ROOM, ABISAIEH CHANGED OUT FOR HOSPITAL BED AT THIS TIME FOR PT COMFORT. PT PALCED BACK ON MONITORING, LIGHTS DIMMED FOR COMFORT AND REST. PT BED IN [facility], RAILS ENGAGED, CALL LIGHT ON LAP, WAITING FOR ADMIT BED, [facility] [place]
--- NOTE | 2021-04-23 06:59 | NUR ---
REPORT TO ALONZO SMITH, PT CARE TRANSFERRED AT THIS TIME.
--- NOTE | 2021-04-23 07:00 | NUR ---
RECEIVED REPORT FROM JAMAR SMITH. PT UPRIGHT ON GURNEY AWAKE & COMFORTABLE, RESPONDS APPROP TO STAFF, NAD, COMFORT MEASURES PROVIDED, CALL LIGHT WITHIN REACH.
--- NOTE | 2021-04-23 07:52 | NUR ---
Pt to be admitted to [facility], room 502. Report called to NICOLE.
[2021-04-23] MEDS ORDERED: ACETAMINOPHEN 325 MG TABLET PO PRN (08:32)
[2021-04-23] MEDS ORDERED: FUROSEMIDE 40 MG/4 ML IVPush SCH (09:00)
[2021-04-23] MEDS ORDERED: EVOL140S2 SC (09:50)
[2021-04-23] MEDS ORDERED: LATANOPROST OPHTH 0.005%, 2.5ML EACHEYE SCH (10:30)
[2021-04-23] MEDS: LATANOPROST OPHTH 0.005%, 2.5ML EACHEYE SCH (10:56)
[2021-04-23] MEDS: ALBUTEROL SULFATE 2.5 MG/3 ML NPPB SCH ×3 (12:30→20:09)
[2021-04-23] MEDS: FUROSEMIDE 40 MG/4 ML IVPush SCH (17:43)
[2021-04-23] MEDS: BUDESONIDE 0.5 MG/2 ML INHA NPPB SCH (20:09)
[2021-04-23] MEDS: CARVEDILOL 6.25 MG TABLET PO SCH (20:10)
[2021-04-23] MEDS: APIXABAN 5 MG TABLET PO SCH (20:10)
[2021-04-23] MEDS: EZETIMIBE 10 MG TABLET PO SCH (20:10)
[2021-04-24 05:11] LABS: BASOPHILS % (AUTO) 1 % (0-1); EOSINOPHILS % (AUTO) 1 % (1-7); LYMPHOCYTES % (AUTO) 33 % (22-44); MEAN CORPUSCULAR HEMOGLOBIN 28.7 pg (27.0-34.8); MEAN CORPUSCULAR HGB CONC 33.9 g/dL (32.4-35.8); MONOCYTES % (AUTO) 11 % (2-9); NEUTROPHILS % (AUTO) 54 % (42-75); PLATELET COUNT 159 x10^3/uL (130-400); RED BLOOD COUNT 4.52 x10^6/uL (3.82-5.3); RED CELL DISTRIBUTION WIDTH 13.6 % (9.6-15.2)
[2021-04-24 05:19] LABS: CHLORIDE 104 mmol/L (98-107)
[2021-04-24 05:30] LABS: ANION GAP 7 mmol/L (5-15); CREATININE 1.23 mg/dL (0.55-1.02)
[2021-04-24] MEDS: LEVOTHYROXINE 75 MCG TABLET PO SCH (05:39)
[2021-04-24 06:42] VITALS: BP 111/57
[2021-04-24] MEDS: BUDESONIDE 0.5 MG/2 ML INHA NPPB SCH ×2 (08:50→10:05)
[2021-04-24] MEDS: LATANOPROST OPHTH 0.005%, 2.5ML EACHEYE SCH ×2 (09:00→09:28)
[2021-04-24] MEDS: CARVEDILOL 6.25 MG TABLET PO SCH ×2 (09:25→20:27)
[2021-04-24] MEDS: FUROSEMIDE 40 MG/4 ML IVPush SCH ×2 (09:25→17:22)
[2021-04-24] MEDS: SPIRONOLACTONE 25 MG TABLET PO SCH (09:25)
[2021-04-24] MEDS: APIXABAN 5 MG TABLET PO SCH ×3 (09:25→20:27)
[2021-04-24] MEDS: ALBUTEROL SULFATE 2.5 MG/3 ML NPPB SCH (10:05)
[2021-04-24 11:33] LABS: TROPONIN I < 0.015 ng/mL (0.000-0.045)
[2021-04-24] MEDS ORDERED: REGADENOSON 0.4 MG/5 ML SYRINGE ONE (12:21)
[2021-04-24 12:34] VITALS: BP 111/73
[2021-04-24] MEDS ORDERED: ALBUTEROL SULFATE 2.5 MG/3 ML NPPB PRN (15:30)
[2021-04-24 17:20] VITALS: BP 109/72
[2021-04-24 20:22] VITALS: BP 107/69
[2021-04-24] MEDS: EZETIMIBE 10 MG TABLET PO SCH (20:27)
[2021-04-24] MEDS ORDERED: BUDESONIDE 0.5 MG/2 ML INHA NPPB PRN (21:30)
[2021-04-25 00:40] VITALS: BP 105/60
[2021-04-25 05:02] LABS: MEAN CORPUSCULAR HGB CONC 33.1 g/dL (32.4-35.8); MEAN PLATELET VOLUME 11.7 fL (7.4-10.4); PLATELET COUNT 172 x10^3/uL (130-400); RED BLOOD COUNT 4.72 x10^6/uL (3.82-5.3); RED CELL DISTRIBUTION WIDTH 13.9 % (9.6-15.2)
[2021-04-25] MEDS: LEVOTHYROXINE 75 MCG TABLET PO SCH (05:05)
[2021-04-25 05:12] LABS: ANION GAP 9 mmol/L (5-15); CALCIUM 9.2 mg/dL (8.5-10.1); CHLORIDE 101 mmol/L (98-107); CREATININE 1.31 mg/dL (0.55-1.02)
[2021-04-25 05:55] LABS: <PLATELET ESTIMATE> ADEQUATE; <RBC MORPHOLOGY> NORMAL; BAND#(MANUAL) 0.32 x10^3/uL; BANDS%(MANUAL) 4 % (0-7); EOS#(MANUAL) 0.08 x10^3/uL (0.0-0.4); EOS% (MANUAL) 1 % (1-7); LARGE PLATELETS 1+; LYMPH#(MANUAL) 2.16 x10^3/uL (1-3.4); LYMPHS% (MANUAL) 27 % (22-44); MONOS#(MANUAL) 0.48 x10^3/uL (0.3-2.7); MONOS% (MANUAL) 6 % (2-9); SEG#(MANUAL) 4.96 x10^3/uL (1.8-6.8); SEGS% (MANUAL) 62 % (42-75)
[2021-04-25 06:36] VITALS: BP 93/54
[2021-04-25 09:22] VITALS: BP 116/78
[2021-04-25] MEDS: SPIRONOLACTONE 25 MG TABLET PO SCH (09:23)
[2021-04-25] MEDS: APIXABAN 5 MG TABLET PO SCH (09:23)
[2021-04-25] MEDS: CARVEDILOL 6.25 MG TABLET PO SCH (09:24)
[2021-04-25] MEDS: LATANOPROST OPHTH 0.005%, 2.5ML EACHEYE SCH ×2 (09:24)
[2021-04-25 12:03] LABS: ANION GAP 3 mmol/L (5-15); CALCIUM 9.4 mg/dL (8.5-10.1); CHLORIDE 104 mmol/L (98-107); CREATININE 1.39 mg/dL (0.55-1.02)
[2021-04-25 12:14] VITALS: BP 126/82
== END 2021-04-25 15:52 | disposition home or self-care (01) | DRG 291 ==
LOC: ED 05:20 → EDIP 05:35 → 5SO 08:12
PROVIDERS: ADMIT Internal Medicine; ATTEND Family Medicine
DX: I11.0 Hypertensive heart disease with heart failure (principal); J96.01 Acute respiratory failure with hypoxia; I50.21 Acute systolic (congestive) heart failure; N17.0 Acute kidney failure with tubular necrosis; Q21.1 Atrial septal defect; I42.8 Other cardiomyopathies; G47.31 Primary central sleep apnea; I25.10 Atherosclerotic heart disease of native coronary artery without angina pectoris; I48.0 Paroxysmal atrial fibrillation; J44.9 Chronic obstructive pulmonary disease, unspecified; Z91.041 Radiographic dye allergy status; Z91.013 Allergy to seafood
CPT/HCPCS: 36415; 71045; 78452; 80048; 80053; 83735; 83880; 84443; 84484; 85025; 93005; 93017; 93306; 93356; 96374; G0378; J1650; J1940; J2785; A9502

== ENCOUNTER 2021-06-09 18:02 | Inpatient (IN) | payer BC ==
[~2021-06-09] VITALS: Ht 162.6 cm; Wt 80.4 kg
[~2021-06-09 18:02] MED LIST changes: +ALBU8.5H8 INH; +CARV3.122 PO; +CARV6.252 PO; +EVOL140S2 SC; +EZET10TA70 PO; +LATA2.5D4 EACHEYE; -LISI2.5T PO; +LISI2.5T12 PO; +REPATHA SC
[2021-06-09 20:42] VITALS: BP 137/87
[2021-06-09] MEDS ORDERED: HEPARIN 5,000 UNITS/ML, 1ML IV PRN (21:30)
[2021-06-09] MEDS ORDERED: AMIODARONE 450 MG in DEXTROSE 5% 241 ML IV PRN (21:30)
[2021-06-09] MEDS ORDERED: morphine SULFATE 10 MG/ML, 1ML IVPush PRN (21:30)
[2021-06-09] MEDS ORDERED: HEPARIN 25,000 UNITS/250ML PMX 250 ML IV PRN (21:30)
[2021-06-09] MEDS ORDERED: ENALAPRILAT 1.25 MG/ML, 2ML IVPush PRN (21:30)
[2021-06-09] MEDS ORDERED: ONDANSETRON ODT 4 MG PO PRN (21:30)
[2021-06-09] MEDS ORDERED: ONDANSETRON 2MG/ML, 2ML IVPush PRN (21:30)
[2021-06-09] MEDS ORDERED: HEPARIN 5,000 UNITS/ML, 1ML IV ONE (21:30)
[2021-06-09] MEDS ORDERED: ZOLPIDEM 5MG TABLET PO PRN (21:30)
[2021-06-09] MEDS: PLEASE ENTER HEIGHT AND WEIGHT MC SCH ×2 (21:38→23:10)
[2021-06-09] MEDS: ATORVASTATIN 40 MG TABLET PO SCH (22:04)
[2021-06-09] MEDS ORDERED: FILTER 0.22 MICRON IV PRN (23:00)
[2021-06-09] MEDS: LATANOPROST OPHTH 0.005%, 2.5ML EACHEYE SCH (23:06)
[2021-06-10] VITALS (7 sets, daily range): BP systolic 101–151; BP diastolic 63–95
[2021-06-10] MEDS: CARVEDILOL 6.25 MG TABLET PO SCH ×2 (04:42→20:15)
[2021-06-10] MEDS: LEVOTHYROXINE 75 MCG TABLET PO SCH (04:42)
[2021-06-10 05:59] LABS: BASOPHILS % (AUTO) 0 % (0-1); EOSINOPHILS % (AUTO) 0 % (1-7); LYMPHOCYTES % (AUTO) 14 % (22-44); MEAN CORPUSCULAR HGB CONC 33.3 g/dL (32.4-35.8); MEAN PLATELET VOLUME 10.6 fL (7.4-10.4); MONOCYTES % (AUTO) 2 % (2-9); NEUTROPHILS % (AUTO) 84 % (42-75); PLATELET COUNT 162 x10^3/uL (130-400); RED BLOOD COUNT 4.33 x10^6/uL (3.82-5.3); RED CELL DISTRIBUTION WIDTH 14.5 % (9.6-15.2)
[2021-06-10] MEDS ORDERED: SODIUM CHLORIDE 0.9% 1,000 ML IV SCH (06:00)
[2021-06-10 06:10] LABS: CHLORIDE 109 mmol/L (98-107)
[2021-06-10 06:26] LABS: ANION GAP 9 mmol/L (5-15); CALCIUM 9.6 mg/dL (8.5-10.1); CREATININE 0.95 mg/dL (0.55-1.02); FREE T4 (FREE THYROXINE) 1.17 ng/dL (0.76-1.46)
[2021-06-10] MEDS ORDERED: DIPHENHYDRAMINE 50 MG/ML, 1ML IVPush ONE (09:00)
[2021-06-10] MEDS: EZETIMIBE 10 MG TABLET PO SCH (10:11)
[2021-06-10] MEDS: AMIODARONE 200 MG TABLET PO SCH ×3 (10:12→20:15)
[2021-06-10] MEDS: methylPREDNISolone SOD SUCC 125 MG/2 ML IVPush ONE ×2 (10:12→11:01)
[2021-06-10] MEDS: SPIRONOLACTONE 25 MG TABLET PO SCH (10:12)
[2021-06-10] MEDS: LISINOPRIL 5 MG TABLET PO SCH (10:12)
[2021-06-10] MEDS ORDERED: VERAPAMIL 2.5 MG/ML, 2ML ONE (14:36)
[2021-06-10] MEDS ORDERED: MIDAZOLAM 1 MG/ML, 5ML ONE (14:36)
[2021-06-10] MEDS ORDERED: FENTANYL PF 100 MCG/2ML ONE (14:36)
[2021-06-10] MEDS ORDERED: LIDOCAINE-MPF 1%, 5ML ONE (14:36)
[2021-06-10] MEDS ORDERED: BIVALIRUDIN 250 MG ONE (15:14)
[2021-06-10] MEDS ORDERED: CEFAZOLIN PMX 1GM/50ML 50 ML IVPB ONE (17:00)
[2021-06-10] MEDS: MEXILETINE 150 MG CAPSULE PO SCH (18:44)
[2021-06-10] MEDS: ATORVASTATIN 40 MG TABLET PO SCH (20:15)
[2021-06-10] MEDS: LATANOPROST OPHTH 0.005%, 2.5ML EACHEYE SCH (20:15)
[2021-06-11 00:30] VITALS: BP 106/67
[2021-06-11] MEDS: MEXILETINE 150 MG CAPSULE PO SCH ×3 (03:15→18:12)
[2021-06-11 06:00] LABS: BASOPHILS % (AUTO) 0 % (0-1); EOSINOPHILS % (AUTO) 0 % (1-7); LYMPHOCYTES % (AUTO) 11 % (22-44); MEAN CORPUSCULAR HGB CONC 33.2 g/dL (32.4-35.8); MEAN PLATELET VOLUME 11.5 fL (7.4-10.4); MONOCYTES % (AUTO) 3 % (2-9); NEUTROPHILS % (AUTO) 86 % (42-75); PLATELET COUNT 184 x10^3/uL (130-400); RED BLOOD COUNT 4.19 x10^6/uL (3.82-5.3); RED CELL DISTRIBUTION WIDTH 14.6 % (9.6-15.2)
[2021-06-11 06:03] LABS: ANION GAP 7 mmol/L (5-15); CALCIUM 8.9 mg/dL (8.5-10.1); CHLORIDE 112 mmol/L (98-107); CREATININE 1.05 mg/dL (0.55-1.02)
[2021-06-11 06:10] VITALS: BP 115/70
[2021-06-11] MEDS: LEVOTHYROXINE 75 MCG TABLET PO SCH (06:24)
[2021-06-11] MEDS ORDERED: SODIUM CHLORIDE 0.9% 1,000 ML IV SCH (08:00)
[2021-06-11] MEDS ORDERED: CEFAZOLIN PMX 1GM/50ML 50 ML IV ONE (09:00)
[2021-06-11] MEDS: AMIODARONE 200 MG TABLET PO SCH ×3 (09:35→20:29)
[2021-06-11] MEDS: CARVEDILOL 6.25 MG TABLET PO SCH ×2 (09:35→18:12)
[2021-06-11] MEDS ORDERED: MIDAZOLAM 1 MG/ML, 5ML ONE (10:58)
[2021-06-11] MEDS ORDERED: FENTANYL PF 100 MCG/2ML ONE (10:58)
[2021-06-11] MEDS ORDERED: CEFAZOLIN 1,000 MG ONE (10:59)
[2021-06-11] MEDS ORDERED: LIDOCAINE 2%, 20ML ONE (10:59)
[2021-06-11] MEDS ORDERED: CEFAZOLIN PMX 1GM/50ML 100 ML ONE (10:59)
[2021-06-11] MEDS ORDERED: DIPHENHYDRAMINE 50 MG/ML, 1ML ONE (11:46)
[2021-06-11] MEDS ORDERED: CEFAZOLIN PMX 1GM/50ML 50 ML ONE (12:21)
[2021-06-11] MEDS ORDERED: HOLD MEDICATION MC PRN (12:30)
[2021-06-11] MEDS: LISINOPRIL 5 MG TABLET PO SCH (14:09)
[2021-06-11] MEDS: EZETIMIBE 10 MG TABLET PO SCH (14:09)
[2021-06-11] MEDS: SPIRONOLACTONE 25 MG TABLET PO SCH (14:10)
[2021-06-11] MEDS: ACETAMINOPHEN 325 MG TABLET PO PRN (14:10)
[2021-06-11 19:10] VITALS: BP 129/82
[2021-06-11] MEDS: SODIUM CHLORIDE FLUSH 10ML SYR IVF SCH (20:29)
[2021-06-11] MEDS: LATANOPROST OPHTH 0.005%, 2.5ML EACHEYE SCH (20:29)
[2021-06-11] MEDS: ATORVASTATIN 40 MG TABLET PO SCH (20:29)
[2021-06-12] MEDS: MEXILETINE 150 MG CAPSULE PO SCH ×3 (02:03→18:47)
[2021-06-12 03:37] VITALS: BP 117/71
[2021-06-12 05:42] LABS: BASOPHILS % (AUTO) 0 % (0-1); EOSINOPHILS % (AUTO) 0 % (1-7); LYMPHOCYTES % (AUTO) 19 % (22-44); MEAN CORPUSCULAR HEMOGLOBIN 28.6 pg (27.0-34.8); MEAN CORPUSCULAR HGB CONC 33.6 g/dL (32.4-35.8); MONOCYTES % (AUTO) 11 % (2-9); NEUTROPHILS % (AUTO) 70 % (42-75); PLATELET COUNT 160 x10^3/uL (130-400); RED BLOOD COUNT 3.93 x10^6/uL (3.82-5.3); RED CELL DISTRIBUTION WIDTH 14.7 % (9.6-15.2)
[2021-06-12] MEDS: CARVEDILOL 6.25 MG TABLET PO SCH ×2 (05:59→18:47)
[2021-06-12] MEDS: LEVOTHYROXINE 75 MCG TABLET PO SCH (05:59)
[2021-06-12 06:48] VITALS: BP 119/78
[2021-06-12] MEDS: SPIRONOLACTONE 25 MG TABLET PO SCH (08:59)
[2021-06-12] MEDS: SODIUM CHLORIDE FLUSH 10ML SYR IVF SCH ×2 (09:00→19:58)
[2021-06-12] MEDS: AMIODARONE 200 MG TABLET PO SCH (09:00)
[2021-06-12] MEDS: EZETIMIBE 10 MG TABLET PO SCH (09:00)
[2021-06-12] MEDS: LISINOPRIL 5 MG TABLET PO SCH (09:00)
[2021-06-12] MEDS: SENNA/DOCUSATE TABLET PO SCH (09:49)
[2021-06-12] MEDS: OMEPRAZOLE 10 MG CAPSULE.DR PO SCH (09:49)
[2021-06-12 14:28] VITALS: BP 115/75
[2021-06-12] MEDS: ACETAMINOPHEN 325 MG TABLET PO PRN (14:39)
[2021-06-12 17:45] LABS: ANION GAP 10 mmol/L (5-15); CALCIUM 8.8 mg/dL (8.5-10.1); CHLORIDE 110 mmol/L (98-107)
[2021-06-12 17:46] LABS: CREATININE 1.25 mg/dL (0.55-1.02)
[2021-06-12 19:53] VITALS: BP 136/84
[2021-06-12] MEDS: LATANOPROST OPHTH 0.005%, 2.5ML EACHEYE SCH (19:58)
[2021-06-12] MEDS ORDERED: AMIODARONE 200 MG TABLET PO SCH (21:00)
[2021-06-12] MEDS ORDERED: ATORVASTATIN 80 MG TABLET PO SCH (21:00)
[2021-06-13] MEDS: ACETAMINOPHEN 325 MG TABLET PO PRN ×2 (00:35→09:43)
[2021-06-13] MEDS: MEXILETINE 150 MG CAPSULE PO SCH ×2 (02:13→09:40)
[2021-06-13 02:17] VITALS: BP 143/83
[2021-06-13 06:22] VITALS: BP 145/84
[2021-06-13] MEDS: OMEPRAZOLE 10 MG CAPSULE.DR PO SCH (06:26)
[2021-06-13] MEDS: CARVEDILOL 6.25 MG TABLET PO SCH (06:27)
[2021-06-13] MEDS: LEVOTHYROXINE 75 MCG TABLET PO SCH (06:27)
[2021-06-13] MEDS: SODIUM CHLORIDE FLUSH 10ML SYR IVF SCH (09:00)
[2021-06-13] MEDS: EZETIMIBE 10 MG TABLET PO SCH (09:40)
[2021-06-13] MEDS: SENNA/DOCUSATE TABLET PO SCH (09:41)
[2021-06-13] MEDS: LISINOPRIL 5 MG TABLET PO SCH (09:41)
[2021-06-13] MEDS: SPIRONOLACTONE 25 MG TABLET PO SCH (09:41)
[2021-06-13] MEDS ORDERED: MEXI150C PO (10:38)
[2021-06-13] MEDS ORDERED: LISI5TAB7 PO (10:38)
[2021-06-13] MEDS ORDERED: ATOR-2 PO (10:38)
[2021-06-13] MEDS ORDERED: AMIO200T42 PO (10:38)
[2021-06-13 12:42] VITALS: BP 159/89
[2021-06-14] MEDS ORDERED: AMIODARONE 200 MG TABLET PO SCH ×2 (09:00)
== END 2021-06-13 17:05 | disposition home or self-care (01) | DRG 222 ==
LOC: 5SO 20:31
PROVIDERS: ADMIT Family Medicine; ATTEND Hospitalist
PROC: B2111ZZ Fluoroscopy of Multiple Coronary Arteries using Low Osmolar Contrast (ICD-10-PCS; principal; 2021-06-10)
PROC: 4A023N7 Measurement of Cardiac Sampling and Pressure, Left Heart, Percutaneous Approach (ICD-10-PCS; 2021-06-10)
PROC: B2151ZZ Fluoroscopy of Left Heart using Low Osmolar Contrast (ICD-10-PCS; 2021-06-10)
PROC: 0JH608Z Insertion of Defibrillator Generator into Chest Subcutaneous Tissue and Fascia, Open Approach (ICD-10-PCS; 2021-06-11)
PROC: 02HK3KZ Insertion of Defibrillator Lead into Right Ventricle, Percutaneous Approach (ICD-10-PCS; 2021-06-11)
PROC: 0JH632Z Insertion of Monitoring Device into Chest Subcutaneous Tissue and Fascia, Percutaneous Approach (ICD-10-PCS; 2021-06-11)
DX: I11.0 Hypertensive heart disease with heart failure (principal); I21.A1 Myocardial infarction type 2; I46.2 Cardiac arrest due to underlying cardiac condition; J96.01 Acute respiratory failure with hypoxia; I47.2 Ventricular tachycardia; I48.20 Chronic atrial fibrillation, unspecified; I50.23 Acute on chronic systolic (congestive) heart failure; I42.8 Other cardiomyopathies; E03.9 Hypothyroidism, unspecified; E78.5 Hyperlipidemia, unspecified; I25.10 Atherosclerotic heart disease of native coronary artery without angina pectoris; I48.0 Paroxysmal atrial fibrillation; J44.9 Chronic obstructive pulmonary disease, unspecified; Z79.01 Long term (current) use of anticoagulants; Z91.041 Radiographic dye allergy status; Z82.49 Family history of ischemic heart disease and other diseases of the circulatory system; Z82.3 Family history of stroke
CPT/HCPCS: 33249; 36415; 93458; J3490; 71045; 80048; 84439; 84443; 85025; 85520; 93005; 93306; 99156; C1769; C1892; C1894; C1895; G0378; J0583; J0690; J2250; J3010; J7060; C1722; J0282; J1200; J2930; J7030; Q9967